=== PATIENT | male | born 1995 | race Caucasian/White ===

== ENCOUNTER → 2017-09-20 | Outpatient (CLI) | payer BC ==
--- NOTE | 2017-09-20 17:00 | DIAGNOSTIC IMAGING REPORT ---
ABDOMEN FOR HERNIA CLINICAL HISTORY: R/O HERNIA,PAINFUL LUMP NEAR PELVIS TECHNIQUE: Ultrasound pre and post Valsalva COMPARISON STUDY: None FINDINGS: Small fat-containing reducible right inguinal hernia. No evidence of bowel containment. IMPRESSION: Small reducible fat-containing right inguinal hernia. The above report was generated using voice recognition software. It may contain grammatical, syntax or spelling errors. Electronically signed by: Chris Sánchez M.D. 09/20/2017 4:58 PM Dictated Date/Time: 09/20/2017 4:57 PM
== END | disposition home or self-care (01) ==
LOC: C.ULTR 16:23
PROVIDERS: ATTEND Physician Assistant Medical
DX: K40.90 Unilateral inguinal hernia, without obstruction or gangrene, not specified as recurrent (principal)